=== PATIENT | male | born 1995 | race Caucasian/White ===

== ENCOUNTER 2018-09-26 23:41 | Emergency (ER) ==
[~2018-09-26] VITALS: Ht 175.3 cm; Wt 70.3 kg
[2018-09-27] MEDS ORDERED: ACETAMINOPHEN ES 500 MG TABLET ONE (00:18)
[2018-09-27] MEDS ORDERED: IBUPROFEN 600 MG TABLET PO ONE ×2 (00:18→00:30)
--- NOTE | 2018-09-27 00:21 | NUR ---
BIB FRIEND W/ C/O FLU LIKE SYMTIMS. PRODUCTIVE COUGH. TEMP: 98.9. RUNNY NOSE. H/A. PLACED ON A MONITOR , WILL CONT TO MONITOR ,
--- NOTE | 2018-09-27 00:26 | NUR ---
RAPID INFLUENZA COLLECTED AND HANDED TO THE LAB
[2018-09-27] MEDS ORDERED: ACETAMINOPHEN ES 500 MG TABLET PO ONE (00:30)
--- NOTE | 2018-09-27 01:10 | NUR ---
Patient discharged to home in stable condition. Written and verbal after care instructions given. Patient verbalizes understanding of instruction. LAST TEMP:98.5
[2018-09-27 01:18] VITALS: BP 133/75
== END 2018-09-27 01:10 | disposition home or self-care (01) ==
LOC: ER 23:48
DX: J45.909 Unspecified asthma, uncomplicated (principal)
CPT/HCPCS: 71045-TC; 87400